=== PATIENT | female | born 1995 ===

== ENCOUNTER 2024-11-21 06:12 | Inpatient (IN) | payer OTHER ==
[~2024-11-21] VITALS: Ht 177.8 cm; Wt 87.5 kg
[2024-11-21] MEDS ORDERED: RINGERS SOLUTION,LACTATED 1,000 ML IV SCH (06:30)
[2024-11-21 06:35] VITALS: BP 114/69
[2024-11-21] MEDS ORDERED: PRENATAL TABLE1 EAC1 PO (06:48)
[2024-11-21 06:53] LABS: URINE APPEARANCE Clear; URINE BILIRRUBIN Negative (NEGATIVE); URINE BLOOD Negative; URINE COLOR Yellow; URINE GLUCOSE Negative (NEGATIVE); URINE KETONE Negative (NEGATIVE); URINE LEUKOCYTE Negative; URINE NITRATE Negative; URINE PROTEIN Negative (NEGATIVE); URINE UROBILINOGEN 1.0 E.U./dl
[2024-11-21 06:56] LABS: BASO % 0.2 % (0.1-1.2); EOS # 0.06 (0.04-0.54); EOS % 0.6 % (0.7-7.0); LYMPH # 2.48 (1.18-3.74); LYMPH % 23.2 % (19.3-53.1); MEAN PLATELET VOLUME 11.00 fl (9.4-12.4); MONO # 0.56 (0.24-0.82); MONO % 5.2 % (4.7-12.5); NEUT # 7.52 (1.56-6.13); NEUT % 70.4 % (34.0-71.1); RED CELL DISTRIBUTION WIDTH 12.1 % (11.6-14.4)
[2024-11-21 06:57] LABS: URINE BACTERIA 2161.0 uL (0.0-1933); URINE EPITHELIAL CELLS 33.3 uL (0.0-38.8); URINE RBC 2.7 uL (0.0-20.8); URINE WBC 16.6 uL (0.0-23.2)
[2024-11-21 07:04] LABS: URINE CAST 0.73 uL (0.0-1.40)
[2024-11-21 07:18] VITALS: BP 122/78
[2024-11-21 07:32] LABS: INR < 0.93
[2024-11-21] MEDS ORDERED: OXYTOCIN 500 ML IV SCH (07:45)
[2024-11-21 08:09] LABS: ALT/SGPT 21.0 U/L (12-78); AST/SGOT 19.0 U/L (15-37); BILIRUBIN TOTAL 0.64 mg/dL (0.3-1.2); BUN CREA RATIO 19.0 (7.0-25.0); CREATININE SERUM 0.48 mg/dL (0.55-1.02); GFR 156.33; GLOBULINA 3.6 G/DL (2.4-3.5); GLUCOSE FASTING 120.0 mg/dL (65-100); OSMOLALITY SERUM 281.0 MOSM/KG (275-295)
[2024-11-21] MEDS ORDERED: MORPHINE SULFATE 4 MG/ML CARTRIDGE IV ONE (10:45)
[2024-11-21] MEDS ORDERED: PROMETHAZINE HCL 50 MG/ML AMPUL IM ONE (10:45)
[2024-11-21 10:51] VITALS: BP 124/87
[2024-11-21] MEDS ORDERED: ACETAMINOPHEN 500 MG GEL..CAP PO PRN (13:15)
[2024-11-21] MEDS ORDERED: CHLORHEXIDINE GLUCONATE 120 ML BOTTLE TP SCH (13:15)
[2024-11-21] MEDS ORDERED: OXYTOCIN 1,000 ML IV SCH (13:15)
[2024-11-21] MEDS ORDERED: BENZOCAINE/MENTHOL 90 ML BOTTLE TOP SCH (14:00)
[2024-11-21 15:55] VITALS: BP 115/62
[2024-11-21 16:49] VITALS: BP 120/80
[2024-11-21] MEDS ORDERED: DOCUSATE SODIUM 100MG CAP PO SCH (17:00)
[2024-11-22 01:05] VITALS: BP 108/73
[2024-11-22 08:27] VITALS: BP 105/60
[2024-11-22 13:41] VITALS: BP 106/67
[2024-11-22 16:00] VITALS: BP 109/74
[2024-11-23 00:50] VITALS: BP 114/76
[2024-11-23 08:20] VITALS: BP 121/79
== END 2024-11-23 12:53 | disposition home or self-care (01) | DRG 807 ==
LOC: OB/GYN 06:12 → LDR 06:12 → OB/GYN 13:11
PROVIDERS: ADMIT Obstetrics & Gynecology; ATTEND Obstetrics & Gynecology
PROC: 10E0XZZ Delivery of Products of Conception, External Approach (ICD-10-PCS; principal; 2024-11-21)
PROC: 0UQG7ZZ Repair Vagina, Via Natural or Artificial Opening (ICD-10-PCS; 2024-11-21)
PROC: 4A1HXCZ Monitoring of Products of Conception, Cardiac Rate, External Approach (ICD-10-PCS; 2024-11-21)
DX: O71.4 Obstetric high vaginal laceration alone (principal); Z37.0 Single live birth; Z3A.39 39 weeks gestation of pregnancy